=== PATIENT | female | born 1965 | race Caucasian/White ===

== ENCOUNTER 2021-11-07 05:30 | Day surgery (SDC) | payer OTHER ==
[~2021-11-07] VITALS: Ht 162.6 cm; Wt 72.1 kg
[~2021-11-07 05:30] MED LIST: ATACAND16 MG; CIPRO XR 500 M500 MG PO; NABUMETONE500 MG PO; NAPROXEN375 MG PO; NATURE-THROID97.5 MG; PERCOCET 5/3251 TAB PO; WELLBUTRIN XL300 MG
[2021-11-07] MEDS ORDERED: NITROFURANTOIN100 MG PO (11:41)
== END 2021-11-07 13:40 | disposition home or self-care (01) ==
LOC: CIR.AMB 05:30
PROVIDERS: ATTEND Obstetrics & Gynecology
DX: N95.0 Postmenopausal bleeding (principal); Z20.822 Contact with and (suspected) exposure to COVID-19; Z88.0 Allergy status to penicillin; Z86.16 Personal history of COVID-19; I10 Essential (primary) hypertension; E78.5 Hyperlipidemia, unspecified; E03.9 Hypothyroidism, unspecified; R73.03 Prediabetes

== ENCOUNTER 2022-09-08 15:58 | Inpatient (IN) | payer OTHER ==
[~2022-09-08] VITALS: Ht 162.6 cm; Wt 74.8 kg
[~2022-09-08 15:58] MED LIST changes: +NITROFURANTOIN100 MG PO
[2022-09-09] MEDS ORDERED: NORVASC5 MG PO (14:58)
[2022-09-09] MEDS ORDERED: CRESTOR20 MG PO (14:59)
[2022-09-09] MEDS ORDERED: EFFEXOR XR150 MG PO (14:59)
[2022-09-09] MEDS ORDERED: SYNTHROID112 MCG PO (14:59)
[2022-09-09] MEDS ORDERED: CLONAZEPAM1 MG PO (14:59)
[2022-09-09] MEDS ORDERED: XANAX XR1 MG PO (15:00)
[2022-09-12] MEDS ORDERED: PERCOCET 5-3251 EACH PO (09:50)
[2022-09-12] MEDS ORDERED: DICLOFENAC POTA50 MG PO (09:52)
[2022-09-12] MEDS ORDERED: TANDEM DUAL AC106 MG PO (09:53)
[2022-09-12] MEDS ORDERED: COLACE100 MG PO (09:54)
== END 2022-09-12 13:03 | disposition home or self-care (01) | DRG 743 ==
LOC: O/R 09-11 05:45 → SURG 09-11 07:00 → OB/GYN 09-11 11:21 → SURG 09-11 12:00 → OB/GYN 09-12 13:03
PROVIDERS: ADMIT Obstetrics & Gynecology; ATTEND Obstetrics & Gynecology
PROC: 0UT74ZZ Resection of Bilateral Fallopian Tubes, Percutaneous Endoscopic Approach (ICD-10-PCS; 2022-09-11)
PROC: 0USG4ZZ Reposition Vagina, Percutaneous Endoscopic Approach (ICD-10-PCS; 2022-09-11)
PROC: 0UT94ZZ Resection of Uterus, Percutaneous Endoscopic Approach (ICD-10-PCS; principal; 2022-09-11 07:00)
DX: N80.03 Adenomyosis of the uterus (principal); N72 Inflammatory disease of cervix uteri; Z20.822 Contact with and (suspected) exposure to COVID-19; N73.6 Female pelvic peritoneal adhesions (postinfective)

== ENCOUNTER 2023-11-28 13:15 | Emergency (ER) | payer OTHER ==
[~2023-11-28] VITALS: Ht 162.6 cm; Wt 78.5 kg
[~2023-11-28 13:15] MED LIST changes: +CLONAZEPAM1 MG PO; +COLACE100 MG PO; +CRESTOR20 MG PO; +DICLOFENAC POTA50 MG PO; +EFFEXOR XR150 MG PO; +NORVASC5 MG PO; +PERCOCET 5-3251 EACH PO; +SYNTHROID112 MCG PO; +TANDEM DUAL AC106 MG PO; +XANAX XR1 MG PO
[2023-11-28] MEDS ORDERED: BRILINTA60 MG (13:28)
[2023-11-28] MEDS ORDERED: ORPHENADRINE CITRATE 30 MG/ML AMPUL IM STA (15:00)
[2023-11-28] MEDS ORDERED: METHYLPREDNISOLONE SOD SUCC 125 MG VIAL IM STA (15:00)
[2023-11-28] MEDS ORDERED: DICLOFENAC POTA50 MG PO (17:53)
== END 2023-11-28 18:57 | disposition home or self-care (01) ==
LOC: ER 13:17
DX: M25.512 Pain in left shoulder (principal); Z88.0 Allergy status to penicillin